=== PATIENT | female | born 1965 | race Asian ===

== ENCOUNTER 2019-05-17 11:38 | Outpatient (CLI) | payer BC ==
[2019-05-17 12:15] LABS: PLATELET COUNT 210 K/uL (152-353)
[2019-05-17 12:38] LABS: POTASSIUM 3.9 mmol/L (3.6-5.2)
== END 2019-05-17 23:47 | disposition home or self-care (01) ==
LOC: LABW 11:38
PROVIDERS: Physician Assistant
DX: Z00.00 Encounter for general adult medical examination without abnormal findings (principal); M79.603 Pain in arm, unspecified; M79.10 Myalgia, unspecified site; Z68.37 Body mass index [BMI] 37.0-37.9, adult; E55.9 Vitamin D deficiency, unspecified
CPT/HCPCS: 36415; 80053; 80061; 82306; 83735; 84439; 84443; 85027; 85651

== ENCOUNTER 2019-08-22 07:33 | Outpatient (CLI) | payer OTHER | END 2019-08-22 07:36 | disposition short-term general hospital (02) | LOC: AMB 07:33 | DX: S01.111A Laceration without foreign body of right eyelid and periocular area, initial encounter (principal); W22.8XXA Striking against or struck by other objects, initial encounter; Y92.62 Dock or shipyard as the place of occurrence of the external cause | CPT/HCPCS: A0425; A0429 ==

== ENCOUNTER 2019-08-22 07:38 | Emergency (ER) | payer OTHER ==
[~2019-08-22] VITALS: Ht 170.2 cm; Wt 106.1 kg
[2019-08-22 07:38] VITALS: TEMP 98.1
[2019-08-22 09:42] VITALS: BP 188/92
== END 2019-08-22 09:42 | disposition home or self-care (01) ==
LOC: ED 07:54
PROC: 0HQ1XZZ Repair Face Skin, External Approach (ICD-10-PCS; principal; 2019-08-22)
PROC: 3E1CX8Z Irrigation of Eye using Irrigating Substance (ICD-10-PCS; 2019-08-22)
DX: S09.8XXA Other specified injuries of head, initial encounter (principal); S01.81XA Laceration without foreign body of other part of head, initial encounter; H57.11 Ocular pain, right eye; W20.8XXA Other cause of strike by thrown, projected or falling object, initial encounter; Y92.69 Other specified industrial and construction area as the place of occurrence of the external cause
CPT/HCPCS: 90471; 90715; 99283; J7040

== ENCOUNTER 2019-09-16 07:27 | Outpatient (CLI) | payer BC ==
[2019-09-16 08:28] LABS: PLATELET COUNT 162 K/uL (152-353); POTASSIUM 4.2 mmol/L (3.6-5.2)
== END 2019-09-16 19:20 | disposition home or self-care (01) ==
LOC: LABW 07:27
PROVIDERS: Internal Medicine
DX: E01.0 Iodine-deficiency related diffuse (endemic) goiter (principal)
CPT/HCPCS: 36415; 80053; 84439; 84443; 85027; 85651

== ENCOUNTER 2019-09-20 11:05 | Outpatient (CLI) | payer BC | END 2019-09-20 20:16 | disposition home or self-care (01) | LOC: US 11:05 | DX: E01.0 Iodine-deficiency related diffuse (endemic) goiter (principal) ==

== ENCOUNTER 2019-11-11 07:42 | Outpatient (CLI) | payer BC | END 2019-11-11 19:09 | disposition home or self-care (01) | LOC: MRI 07:42 | DX: Z12.31 Encounter for screening mammogram for malignant neoplasm of breast (principal); N83.292 Other ovarian cyst, left side; Z80.41 Family history of malignant neoplasm of ovary | CPT/HCPCS: 36415; 82565; 84520; A9576 ==

== ENCOUNTER 2020-11-25 08:05 | Outpatient (CLI) | payer BC | END 2020-11-25 20:51 | disposition home or self-care (01) | LOC: US 08:05 | PROVIDERS: ATTEND Internal Medicine | DX: Z12.31 Encounter for screening mammogram for malignant neoplasm of breast (principal); E04.2 Nontoxic multinodular goiter ==

== ENCOUNTER 2021-05-07 08:10 | Outpatient (CLI) | payer BC | END 2021-05-07 22:34 | disposition home or self-care (01) | LOC: MAMMO 08:10 | PROVIDERS: ATTEND Obstetrics & Gynecology | DX: Z12.31 Encounter for screening mammogram for malignant neoplasm of breast (principal) ==

== ENCOUNTER 2021-12-10 10:05 | Outpatient (CLI) | payer BC | END 2021-12-10 20:01 | disposition home or self-care (01) | LOC: RAD 10:05 | PROVIDERS: ATTEND Internal Medicine | DX: M25.551 Pain in right hip (principal); M54.50 Low back pain, unspecified ==